=== PATIENT | male | born 1980 | race Caucasian/White ===

== ENCOUNTER 2020-06-28 10:48 | Outpatient (CLI) | payer OTHER, SELFPAY ==
--- NOTE | 2020-06-28 11:03 | XR_ITS ---
WS: [id number] Exam: XR thoracic spine 3V* [id number] Date/Time of Exam: 06/28/2020 11:20 AM Reason For Exam: PARESTHESIA/THORACIC REGION BACK PAIN Findings: In the AP projection, the thoracic spine is straight. In the lateral projection, the thoracic curve is well maintained. The intervertebral disc spaces are intact. No fractures or anomalies of the tho racic spine are noted. XR/XR thoracic spine 3V* [id number] IMPRESSION: Negative thoracic spine.
== END 2020-06-28 10:49 | disposition home or self-care (01) ==
PROVIDERS: Visit Provider Electrodiagnostic Medicine
DX: R20.2 Paresthesia of skin (principal); M54.6 Pain in thoracic spine; E03.8 Other specified hypothyroidism
CPT/HCPCS: 72072

== ENCOUNTER → 2021-12-24 14:55 | Outpatient (BNVA) | payer MEDICAID, SELFPAY | PROVIDERS: Referring Provider Family Medicine; Visit Provider Specialist | DX: R20.0 Anesthesia of skin (principal); R20.2 Paresthesia of skin | CPT/HCPCS: 95910; 95912 ==

== ENCOUNTER 2022-05-09 09:04 | Outpatient (CLI) | payer BC, MEDICAID, SELFPAY ==
--- NOTE | 2022-05-09 09:23 | MR_ITS ---
WS: [id number] MRI CERVICAL SPINE NONCONTRAST AND CONTRAST TECHNIQUE: Sagittal T1, T2 and STIR imaging. Axial T2, gradient, and fiesta imaging. Post gadolinium imaging. CLINICAL INFORMATION: NEUROPATHY COMPARISON: May 19, 2016 FINDINGS: Straightening of the normal cervical lordosis. Cord signal is normal. No high-grade central canal adriano rowing. No abnormal gadolinium enhancement. C2-C3: Normal. C3-C4: Moderate facet arthropathy. Spinal canal and foramen are patent. C4-C5: Moderate facet arthropathy. Osteophytic ridging with mild LEFT and no significant RIGHT forami nal narrowing. Spinal canal is patent. C5-C6: Moderate facet arthropathy. Slight osteophytic ridging and uncovertebral joint hypertrophy. Mi ld LEFT and no significant RIGHT foraminal narrowing. Spinal canal is patent. C6-C7: Minimal disc bulging and osteophytic ridging. Mild LEFT and no significant RIGHT foraminal adriano rowing. LEFT eccentric osteophytic ridging encroaches on the exiting LEFT C7 nerve root. Mild facet a rthropathy. Spinal canal is patent. C7-T1: Normal No abnormal gadolinium enhancement. Visualized brain stem structures: Normal. Prevertebral soft tissues: Normal. MR/MR cervical spine wo/w [id number] IMPRESSION: 1. Straightening of the normal cervical lordosis. Cord signal is normal. 2. No significant central canal stenosis. No significant disc bulging. 3. Mild to moderate facet arthropathy cervical spine worse at C3-C4, C4-C5, an d C5-C6. Mild facet arthropathy C6-C7. 4. Mild bony foraminal narrowing more prominent at LEFT C4-C5, LEFT C5-C6, LEF T C6-C7 narrowing due to facet arthropathy in combination with endplate osteoph ytic ridging and uncovertebral joint hypertrophy. 5. No abnormal gadolinium enhancement.
[2022-05-09] MEDS: gadobenate dimeglumine 20 mL vial IV (10:08)
== END 2022-05-09 09:05 | disposition home or self-care (01) ==
LOC: RAD 09:05
PROVIDERS: PCP Electrodiagnostic Medicine; Visit Provider Electrodiagnostic Medicine
DX: G62.9 Polyneuropathy, unspecified (principal); M47.812 Spondylosis without myelopathy or radiculopathy, cervical region
CPT/HCPCS: 72156; A9577

== ENCOUNTER → 2024-02-15 09:16 | Outpatient (BNVA) | payer BC, MEDICAID, SELFPAY | PROVIDERS: PCP Electrodiagnostic Medicine; Referring Provider Electrodiagnostic Medicine; Visit Provider Internal Medicine | DX: E07.9 Disorder of thyroid, unspecified (principal) | CPT/HCPCS: 36415; 86337; 86341; 86376; 86800 ==